=== PATIENT | male | born 1950 | race Caucasian/White ===

== ENCOUNTER 2022-05-15 15:02 | Observation (INO) ==
[2022-05-15] MEDS ORDERED: Iopamidol - 370 500 ML MLS IVP ONE (15:32)
[2022-05-15 16:02] LABS: Hematocrit 43.2 % (37.5-50.1); Mean Corpuscular HGB Conc 34.7 g/dL (31.6-35.5); Mean Corpuscular Hemoglobin 30.7 pg (28.0-33.3); Mean Corpuscular Volume 88.3 fL (83.0-100.0); Mean Platelet Volume 9.8 fL (9.4-12.4); Platelet Count 256 K/mcL (140-400); Red Blood Count 4.89 M/mcL (4.19-5.50); Red Cell Distribution Width 12.5 % (11.5-14.5); White Blood Count 11.4 K/mcL (4.3-11.1)
[2022-05-15 16:11] LABS: INR 1.1; Prothrombin Time 11.9 Seconds (9.4-12.1)
[2022-05-15 16:20] LABS: BUN/Creatinine Ratio 20 (6-26); Blood Urea Nitrogen 23 mg/dL (8-23); Calcium 9.7 mg/dL (8.6-10.3); Carbon Dioxide 32 mEq/L (23-29); Chloride 99 mEq/L (98-107); Creatine Kinase 194 Units/L (30-223); Ethanol < 10 mg/dL (Less than 10); Glucose 211 mg/dL (70-105); Osmolality,Calculated 292 (280-300); Sodium 136 mEq/L (136-145); Troponin I < 0.03 ng/mL (< 0.04)
[2022-05-15 16:48] LABS: Bilirubin,Urine Negative (Negative); Blood,Urine Trace (Negative); Clarity,Urine Clear (Clear); Color,Urine Light-Yellow (Yellow); Glucose,Urine (UA) 100 mg/dL (Normal); Ketones,Urine Negative (Negative); Leukocyte Esterase,Urine Negative (Negative); Mucus,Urine Few per lpf (None-Few); Nitrite,Urine Negative (Negative); PH,Urine 6.5 pH Units (5.0-8.0); Protein,Urine 200 mg/dL (Neg-Trace); Specific Gravity,Urine 1.023 (1.010-1.025); Squamous Epithelial Cell,Urine Few per hpf (None-Few); Urobilinogen,Urine Normal (Normal); WBC,Urine 0-3 per hpf (0-3)
[2022-05-15 16:58] LABS: Amphetamine Screen,Urine Negative ng/mL (Cutoff=1000); Barbiturate Screen,Urine Negative ng/mL (Cutoff=200); Benzodiazepines Screen,Urine Negative ng/mL (Cutoff=200); Cannabinoid Screen,Urine Negative ng/mL (Cutoff = 50); Cocaine Screen,Urine Negative ng/mL (Cutoff= 300); Opiate Screen,Urine Negative ng/mL (Cutoff=300); Phencyclidine Screen,Urine Negative ng/mL (Cutoff=25)
[2022-05-15] MEDS ORDERED: *HR* Dextrose 50 % in Water (Syg) 50 ML SYRINGE IVP PRN (20:30)
[2022-05-15] MEDS ORDERED: D5% in Water 1,000 ML IVC PRN (20:30)
[2022-05-15] MEDS ORDERED: Dextrose Gel 15 GM/37.5 ML TUBE PO PRN ×2 (20:30)
[2022-05-15] MEDS ORDERED: *HR* Labetalol 20 MG/4 ML SYRINGE IVP ONE (20:39)
[2022-05-15] MEDS: Aspirin Enteric Coated 325 MG Tablet PO SCH (20:41)
[2022-05-15] MEDS ORDERED: Budesonide/Formoterol 80/4.5 1 PUFF INH IH PRN (20:44)
[2022-05-15] MEDS ORDERED: Ondansetron 4 MG/2 ML VIAL IVP PRN (20:45)
[2022-05-15] MEDS ORDERED: Acetaminophen 325 MG TABLET PO PRN (20:45)
[2022-05-15] MEDS ORDERED: Naloxone 0.4 MG/ML INJ IVP PRN (20:45)
[2022-05-15] MEDS ORDERED: *HR* LORazepam 2 MG/ML VIAL IVP ONE (20:47)
[2022-05-15] MEDS: Insulin LISPRO 300 UNITS/3 ML VIAL SUBQ SCH (21:21)
[2022-05-15 23:34] LABS: Influenza A PCR Negative (Negative); Influenza B PCR Negative (Negative); Resp. Syncytial Virus PCR Negative (Negative)
[2022-05-15 23:38] LABS: SARS-CoV-2 by PCR (In House) Negative (Negative)
[2022-05-16] MEDS ORDERED: *HR* Labetalol 20 MG/4 ML SYRINGE IVP ONE ×2 (01:19→03:10)
[2022-05-16 06:15] LABS: Hematocrit 39.7 % (37.5-50.1); Hemoglobin 13.5 g/dL (12.9-16.9); Mean Corpuscular Hemoglobin 29.7 pg (28.0-33.3); Mean Corpuscular Volume 87.4 fL (83.0-100.0); Mean Platelet Volume 9.8 fL (9.4-12.4); Platelet Count 252 K/mcL (140-400); Red Blood Count 4.54 M/mcL (4.19-5.50); Red Cell Distribution Width 12.8 % (11.5-14.5); White Blood Count 8.7 K/mcL (4.3-11.1)
[2022-05-16 06:20] LABS: Estimated Average Glucose 206 mg/dl; Hemoglobin A1C 8.8 %
[2022-05-16] MEDS ORDERED: lisinopriL 20 MG TABLET PO ONE (06:24)
[2022-05-16 07:03] LABS: BUN/Creatinine Ratio 21 (6-26); Blood Urea Nitrogen 22 mg/dL (8-23); Calcium 9.1 mg/dL (8.6-10.3); Carbon Dioxide 28 mEq/L (23-29); Chloride 100 mEq/L (98-107); Chol/HDL Ratio 3.9 (0-4.9); Cholesterol 138 mg/dL (< 200); Glucose 228 mg/dL (70-105); HDL Cholesterol 35 mg/dL (40-59); LDL Cholesterol,Calculated 64 mg/dL (< 100); Magnesium 1.9 mg/dL (1.6-2.6); Osmolality,Calculated 291 (280-300); Potassium 3.7 mEq/L (3.5-5.1); Sodium 135 mEq/L (136-145); Triglycerides 193 mg/dL (< 150); Troponin I < 0.03 ng/mL (< 0.04)
[2022-05-16] MEDS: Cholecalciferol (D-3) 1,000 UNIT (25MCG) TABLET PO SCH (09:10)
[2022-05-16] MEDS: Aspirin Enteric Coated 81 MG Tablet PO SCH (09:10)
[2022-05-16] MEDS: Insulin LISPRO 300 UNITS/3 ML VIAL SUBQ SCH ×4 (09:10→21:24)
[2022-05-16] MEDS: Loratadine 10 MG TABLET PO SCH (09:10)
[2022-05-16] MEDS: Aspirin Enteric Coated 325 MG Tablet PO SCH (09:15)
[2022-05-16] MEDS: amLODIPine 5 MG TABLET PO SCH (11:37)
[2022-05-16] MEDS: Metoprolol XL (24 HR) Succ 50 MG TAB.ER.24H PO SCH (11:37)
[2022-05-16] MEDS: lisinopriL 20 MG TABLET PO SCH ×2 (11:37→21:23)
[2022-05-16] MEDS: hydroCHLOROthiazide 25 MG TABLET PO SCH (11:38)
[2022-05-17 04:05] LABS: Hematocrit 42.4 % (37.5-50.1); Hemoglobin 14.2 g/dL (12.9-16.9); Mean Corpuscular HGB Conc 33.5 g/dL (31.6-35.5); Mean Corpuscular Hemoglobin 29.9 pg (28.0-33.3); Mean Corpuscular Volume 89.3 fL (83.0-100.0); Mean Platelet Volume 10.2 fL (9.4-12.4); Platelet Count 285 K/mcL (140-400); Red Blood Count 4.75 M/mcL (4.19-5.50); Red Cell Distribution Width 12.7 % (11.5-14.5); White Blood Count 10.7 K/mcL (4.3-11.1)
[2022-05-17 04:30] LABS: Calcium 9.5 mg/dL (8.6-10.3); Potassium 3.7 mEq/L (3.5-5.1)
[2022-05-17 07:51] VITALS: BP 176/83; PULSE 70; TEMP 97.3; O2SAT 95
[2022-05-17] MEDS: Cholecalciferol (D-3) 1,000 UNIT (25MCG) TABLET PO SCH (10:28)
[2022-05-17] MEDS: lisinopriL 20 MG TABLET PO SCH (10:28)
[2022-05-17] MEDS: Aspirin Enteric Coated 81 MG Tablet PO SCH (10:28)
[2022-05-17] MEDS: Metoprolol XL (24 HR) Succ 50 MG TAB.ER.24H PO SCH (10:28)
[2022-05-17] MEDS: amLODIPine 5 MG TABLET PO SCH (10:29)
[2022-05-17] MEDS: Loratadine 10 MG TABLET PO SCH (10:29)
[2022-05-17] MEDS: Insulin LISPRO 300 UNITS/3 ML VIAL SUBQ SCH ×2 (10:29→12:56)
[2022-05-17] MEDS: hydroCHLOROthiazide 25 MG TABLET PO SCH (10:29)
== END 2022-05-17 15:25 | disposition home or self-care (01) ==
LOC: 3BNU 15:02 → EMEROOARM 15:02 → 3BNU 19:40
PROVIDERS: ADMIT Internal Medicine; ATTEND Internal Medicine